=== PATIENT | female | born 1950 | race Caucasian/White ===

== ENCOUNTER 2024-01-12 08:03 | Day surgery (SDC) | payer MEDICARE ==
[2024-01-11 09:47] VITALS: BMI 27.8
[~2024-01-12 08:03] MED LIST: EPINEPHrine 0.3 MG in Ophthalmic Irrigation Solution 500 ML IRR SCH
[2024-01-12] MEDS ORDERED: PHENYLephrine 2.5% Ophth Soln 15 ml Bottle ONE (09:01)
[2024-01-12] MEDS ORDERED: Cyclopentolate 1% Opth Drop 2 ML BOT ONE (09:01)
[2024-01-12] MEDS ORDERED: Midazolam HCl 2 mg/2 ml Vial ONE (09:02)
[2024-01-12] MEDS ORDERED: Lidocaine 1% PF 5 ML VIAL ONE ×2 (09:02→09:30)
[2024-01-12] MEDS ORDERED: Lidocaine 4% PF 5 ML AMP ONE (09:30)
[2024-01-12] MEDS ORDERED: TISSUEBLUE 0.5 ML SYRINGE IO ONE (09:30)
[2024-01-12] MEDS ORDERED: Bupivacaine 0.75% 10 ML VIAL ONE (09:30)
[2024-01-12] MEDS ORDERED: Labetalol HCl 100 MG/20 ML VIAL ONE (09:30)
[2024-01-12] MEDS ORDERED: CEFAZOLIN 1 GM VIAL ONE (09:30)
[2024-01-12] MEDS ORDERED: Triamcinolone 40 MG/ML VIAL ONE (09:30)
[2024-01-12] MEDS ORDERED: PROPOFOL 200 MG/20 ML VIAL ONE (09:30)
[2024-01-12] MEDS ORDERED: Maxitrol 0.1% Opth Oint 3.5 GM TUBE ONE (09:30)
[2024-01-12] MEDS ORDERED: hydrALAZINE 20 MG/ML VIAL ONE (11:19)
== END 2024-01-12 11:46 | disposition home or self-care (01) ==
LOC: SDC 08:03
PROVIDERS: ATTEND Ophthalmology Retina Specialist
PROC: 08T43ZZ Resection of Right Vitreous, Percutaneous Approach (ICD-10-PCS; principal; 2024-01-12)
DX: H35.371 Puckering of macula, right eye (principal)
CPT/HCPCS: 67041; J0171; J0360; J0690; J2250; J2704; J3301; J3490

== ENCOUNTER 2025-01-22 08:35 | Outpatient (CLI) | payer MEDICARE, OTHER | END 2025-01-22 08:36 | disposition home or self-care (01) | LOC: RAD 08:35 | PROVIDERS: ATTEND Internal Medicine | DX: R06.00 Dyspnea, unspecified (principal) | CPT/HCPCS: 71046 ==